=== PATIENT | male | born 1940 | race Caucasian/White ===

== ENCOUNTER 2021-07-04 11:20 | Outpatient (CLI) | payer MEDICARE ==
[2021-07-04] MEDS ORDERED: CADEXOMER IODINE UD 5 GM TUBE ONE (11:51)
== END 2021-07-04 23:59 | disposition home health service (06) ==
LOC: WOU 11:20
PROVIDERS: ATTEND Specialist
DX: E11.622 Type 2 diabetes mellitus with other skin ulcer (principal); L97.322 Non-pressure chronic ulcer of left ankle with fat layer exposed; E11.621 Type 2 diabetes mellitus with foot ulcer; L97.512 Non-pressure chronic ulcer of other part of right foot with fat layer exposed; E11.51 Type 2 diabetes mellitus with diabetic peripheral angiopathy without gangrene; J44.9 Chronic obstructive pulmonary disease, unspecified; Z79.84 Long term (current) use of oral hypoglycemic drugs
CPT/HCPCS: G0463